=== PATIENT | female | born 1975 | race Caucasian/White ===

== ENCOUNTER 2024-03-09 17:33 | Emergency (ER) | payer BC, SELFPAY ==
[2024-03-09 17:35] VITALS: BP 131/95; BMI 24.4
[2024-03-09] MEDS: OMNIPAQUE 50 ML PO (18:11)
[2024-03-09] MEDS: NSS IV (18:16)
[2024-03-09 18:20] LABS: % Basophils 0.3 % (0-2); % Eosinophils 0.6 % (0-6); % Immature Granulocytes 0.3 % (0-0.5); % Lymphocytes 34.1 % (20.5-51.1); % Monocytes 4.4 % (1.7-9.3); % Neutrophils 60.3 % (42.2-75.2); Absolute Lymphocytes 2.3 10^3/uL (1.2-3.4); Absolute Monocytes 0.3 10^3/uL (0.1-0.6); Absolute Neutrophils 4.1 10^3/uL (1.4-6.5); Hematocrit 38.2 % (37.0-47.0); Hemoglobin 13.4 g/dL (12.0-16.0); Mean Corp Hgb Conc. 35.1 g/dL (33.0-37.0); Mean Corpuscular Hgb 29.1 pg (27.0-31.0); Mean Platelet Volume 9.8 fL (7.4-10.4); Nucleated Red Blood Cells % 0 %; Platelet Count 289 10^3/uL (130-400); Red Cell Dist. Width 11.9 % (11.5-14.5); White Blood Cell Count 6.8 10^3/uL (4.8-10.8)
[2024-03-09 18:28] LABS: HCG, Serum Qualitative Screen Negative
--- NOTE | 2024-03-09 18:33 | ED.GENMED ---
History of Present Illness
General
Chief Complaint: Abdominal Pain
Source: patient
Exam Limitations: none
Time Seen by Provider: 03/09/24 17:47
Nursing documentation reviewed up to this point in time: agreed with
Travel History
Have you had any contact with someone who has COVID-19?: No
Do you have any symptoms of coronavirus? Fever > 100 degrees, chills, cough, shortness of breath, sore throat, loss of taste or smell, muscle aches, or headache?: No
History of Present Illness
History of Present Illness:
Patient to ED with complaint of lower abdominal pain x 1 day. Reports nausea but no vomiting. No diarrhea. Denies fever/chills, recent illness. Brought to ED by family for eval. No prior history of same.
Past History
Past History
ED Past Medical History: Other (Depression)
ED Past Surgical History: Other
Social History
Tobacco: Smoker
Personal:
Review of Systems
Review of Systems
Allergies reviewed?: Yes
All Other Systems: ROS reviewed and negative except as documented in HPI and ROS
Constitutional: Reports no symptoms
EENT: Reports no symptoms
Respiratory: Reports no symptoms
Cardiac: Reports no symptoms
ABD/GI: Reports abdominal pain (lower abdominal pain)
: Reports no symptoms
Musculoskeletal: Reports no symptoms
Skin: Reports no symptoms
Neurological: Reports no symptoms
Psychiatric: Reports no symptoms
Phy Exam
General Physical Exam
General Presentation: well appearing and mild distress
General age: appears stated age
General Skin: warm and diaphoretic
General Habitus: normal
General Mental: alert
Gastrointestinal Exam
Gastrointestinal Exam: normal bowel sounds, soft, no organomegaly, non distended and no cva tenderness
Palpation: left upper quadrant: No tenderness, left lower quadrant: Moderate tenderness, right upper quadrant: No tenderness and right lower quadrant: Moderate tenderness
Musculoskeletal Exam
Musculoskeletal Exam: full ROM and neuro vasc intact
Skin Exam
Skin Exam: normal color, warm/dry and no rash
Psychiatric Exam
Psychiatric Exam: normal mood/affect
Course
Orders/Labs/Results
Orders:
Orders
03/09/24 18:00
0.9% Sodium Chloride 1000 ml [Nss] 1,000 ml IV BOLUS
Iohexol [Omnipaque] See Protocol PO NOW STA
Ketorolac [Toradol] 30 mg IV NOW STA
Test Result ONCE
03/09/24 18:13
Complete Blood Count/With Diff Urgent
Comprehensive Metabolic Panel Urgent
HCG, Serum Qualitative Screen Urgent
Lipase Urgent
03/09/24 18:32
CT Abd/pel W Iv And Oral Contr Urgent
Comment:
Reason For Exam: lower abdominal pain
03/09/24 19:25
Urinalysis Reflex To Culture Urgent
Date Specimen was Collected: 03/09/24
Time Specimen was Collected: 19:23
Urine Microscopic Reflex Cult Urgent
Abnormal Lab Results
03/09/24 03/09/24
18:13 19:25
Sodium 130 L mmol/L
(135-145)
Leukocyte Esterase Rfl Trace A
(Negative)
Urine Bacteria (Reflex) Few A
(Negative)
03/09/24 18:13
03/09/24 18:13
Vital Signs
Initial and Last Documented VS:
Initial Vital Signs
Temp Pulse Resp BP Pulse Ox
98.2 F 76 16 131/95 99
03/09/24 17:35 03/09/24 17:35 03/09/24 17:35 03/09/24 17:35 03/09/24 17:35
Last Documented Vital Signs
Temp Pulse Resp BP Pulse Ox
98.2 F 57 18 126/78 99
03/09/24 17:35 03/09/24 20:59 03/09/24 20:59 03/09/24 20:59 03/09/24 20:59
*Radiology
Radiology exam reviewed: radiology read reviewed
*Pulse Oximetry
Patient hypoxic: no
*Critical Care Note
Total Time (30-74mins, 75-104mins- exclusive of procedures): Not Applicable
ED Attending Note
-
Portions of this chart may have been created with voice recognition software.� Occasional wrong word or��sound alike� substitutions may have occurred due to the inherent limitations of voice recognition software.
Discharge Plan
Departure
Patient Disposition: Home (Routine Discharge)
Date of Disposition: 03/09/24
Time of Disposition: 20:54
Patient with high blood pressure during this ER visit?: No
Condition: Good
Covid-19: Not Applicable
Discharge Problem:
Abdominal pain
Instructions: Clear Liquid Diet, Abdominal Pain
Prescriptions:
No Action
alprazolam 0.5 MG tablet
0.5 mg PO BID
sertraline 50 MG tablet
100 mg PO DAILY
prenat.vits,bereket,axd-ryvt-bbstf [ Vitamin] 1 TAB tablet
1 tab PO
Referrals:
NONE,* [Family Provider] -
Activity Restrictions/Additional Instructions:
Follow up with your family doctor in 1-2 days.
Interventions
Interventions:
*Risk Screen - Suicide Last Done: 03/09/24 17:35
*General Assessment Last Done: 03/09/24 18:11
*Neglect/Abuse Screening Last Done: 03/09/24 17:35
ED- Fall Risk Assessment Last Done: 03/09/24 17:35
*ED COVID-19 Vaccine History Last Done: 03/09/24 17:35
*Nursing Disposition Last Done: 03/09/24 21:02
VU-Baabdg-Ztyhuklccv Assessment Last Done: 03/09/24 18:11
Discharge Date and Time
Discharge Date/Time: 03/09/24 21:03
Print Language: [place]
[2024-03-09 18:34] LABS: ALT (SGPT) 21 U/L (0-35); AST (SGOT) 27 U/L (14-36); Albumin 4.5 g/dl (3.5-5.0); Alkaline Phosphatase 91 U/L (38-126); Blood Urea Nitrogen 9 mg/dl (7-17); Calcium 9.5 mg/dl (8.4-10.2); Carbon Dioxide 27 mmol/L (22-30); Chloride 99 mmol/L (98-107); Estimated Creatinine Clearance 75 ml/min; Glucose 98 mg/dl (70-99); Lipase 76 U/L (23-300); Potassium 4.5 mmol/L (3.5-5.1); Sodium 130 mmol/L (135-145); Total Bilirubin 0.3 mg/dl (0.2-1.3); Total Protein 7.1 g/dl (6.3-8.2); eGFR > 60.00
[2024-03-09] MEDS: NSS 1000 IV (19:27)
[2024-03-09 19:35] LABS: Urine Albumin Negative (Neg - Trace); Urine Bilirubin Negative (Negative); Urine Character Clear (Clear); Urine Color Yellow; Urine Glucose Negative (Negative); Urine Ketone Negative (Negative); Urine Leukocyte Trace (Negative); Urine Nitrite Negative (Negative); Urine Occult Blood Negative (Negative); Urine Specific Gravity 1.015 (<1.030); Urine Urobilinogen Negative (Neg - 1+); Urine pH 6.5 (5.0-9.0)
[2024-03-09 19:43] LABS: Urine Bacteria Few (Negative); Urine Red Blood Cell None Seen /HPF (0-2)
[2024-03-09 20:59] VITALS: BP 126/78
== END 2024-03-09 21:03 | disposition home or self-care (01) ==
LOC: EMR 17:33
PROVIDERS: Nurse Practitioner; EMERGENCY PHYSICIAN Emergency Medicine
DX: R10.30 Lower abdominal pain, unspecified (principal); R11.0 Nausea; F17.200 Nicotine dependence, unspecified, uncomplicated
CPT/HCPCS: 99285; 96360; 74177; 80053; 81003; 81015; 83690; 84703; 85025; Q9967

== ENCOUNTER 2025-08-05 01:51 | Emergency (ER) | payer BC, SELFPAY ==
[2025-08-05 02:39] VITALS: BP 132/94
[2025-08-05 02:42] VITALS: BMI 24.8
--- NOTE | 2025-08-05 02:42 | DOWNTIME ---
There was a [employer] Downtime on 08/05/2025 from 0100 to 08/05/2025 at 0215. Downtime documentation of patient's care, including medication administrations, has been reconciled in the electronic record per guidelines. Refer to the
patient's paper chart under the miscellaneous tab to see printed paper medication records and downtime forms.
[2025-08-05 03:00] VITALS: BP 114/89
[2025-08-05 03:59] LABS: Hematocrit 34.0 % (37.0-47.0); Hemoglobin 12.0 g/dL (12.0-16.0); Mean Corp Hgb Conc. 35.3 g/dL (33.0-37.0); Mean Corpuscular Volume 81.1 fL (81.0-99.0); Nucleated Red Blood Cells % 0 %; Platelet Count 277 10^3/uL (130-400); Red Cell Dist. Width 11.9 % (11.5-14.5); Urine Character Clear (Clear)
[2025-08-05 04:00] VITALS: BP 117/78
--- NOTE | 2025-08-05 04:01 | ED.GENMED ---
History of Present Illness
General
Chief Complaint: Abdominal Pain
Source: patient
Exam Limitations: none
Time Seen by Provider: 08/05/25 02:36
Nursing documentation reviewed up to this point in time: agreed with
History of Present Illness
History of Present Illness:
49-year-old female with a past medical history of anxiety and depression , presents to the emergency department today with concerns of abdominal pain. This has been going on for the past few weeks on and off but today it became more intense.
Currently, she does not have the pain but reports that it will come in strong waves that are very uncomfortable. Patient has never had anything like this before. Patient reports that the pain feels like a band in her lower abdomen which will
Radiate to the back. She denies any burning with urination, blood her urine, urinary frequency. She denies any fevers or chills. She denies any diarrhea or constipation. She denies history of abdominal surgeries. s. She denies any sick contacts.
She has any chest pain or shortness of breath. She denies any upper respiratory symptoms. She currently does not follow with a primary care provider.
Past History
Past History
ED Past Medical History: Other (Depression)
ED Past Surgical History: Other
Social History
Tobacco: Smoker
Personal:
Review of Systems
Review of Systems
All Other Systems: ROS reviewed and negative except as documented in HPI and ROS
Phy Exam
General Physical Exam
General Presentation: well appearing and no apparent distress
General age: appears stated age
General Skin: warm and dry
Eye Exam
Eye Exam: EOMI
Cardiovascular Exam
Cardiovascular Exam: regular rate/rhythm
Pulmonary Exam
Pulmonary Exam: lungs clear, no respiratory distress, no rales, no crackles and no rhonchi
Gastrointestinal Exam
Gastrointestinal Exam: normal bowel sounds, non tender, soft, no pulsatile mass and non distended
Neurological Exam
Neurological Exam: alert and oriented x3
Skin Exam
Skin Exam: normal color and warm/dry
Psychiatric Exam
Psychiatric Exam: normal mood/affect
Course
Orders/Labs/Results
Orders:
Orders
08/05/25 03:28
CT Abd/pelvis W Iv Cont Urgent
Comment:
Reason For Exam: diffuse lower abdominal pain, flank pain
IV Insert/Care/Rem.- Treatment PRN
Test Result ONCE
08/05/25 03:46
Complete Blood Count/With Diff Urgent
Comprehensive Metabolic Panel Urgent
HCG, Serum Qualitative Screen Urgent
Comment: ADD ON
Lipase Urgent
, Urine Qualitative Screen [HCG, Urine Qualitative Screen] Urgent
Date Specimen was Collected: 08/05/25
Time Specimen was Collected: 03:41
Urinalysis Reflex To Culture Urgent
Date Specimen was Collected: 08/05/25
Time Specimen was Collected: 03:41
Urine Microscopic Reflex Cult Urgent
08/05/25 04:49
Add On- LAB Urgent
Tests Added?: HCG QUAL
Abnormal Lab Results
08/05/25
03:46
RBC 4.19 L 10^6/uL
(4.20-5.40)
Hct 34.0 L %
(37.0-47.0)
Sodium 130 L mmol/L
(135-145)
Chloride 95 L mmol/L
(98-107)
Urine Bacteria (Reflex) Few A
(Negative)
Urine Albumin (Reflex) 1+ A
(Neg - Trace)
08/05/25 03:46
08/05/25 03:46
Vital Signs
Initial and Last Documented VS:
Initial Vital Signs
BP
132/94
08/05/25 02:39
Last Documented Vital Signs
BP Pulse Ox
122/82 97
08/05/25 06:00 08/05/25 06:01
MDM/Problems Addressed
Differential Diagnosis Includes:
ddx include diverticulitis, IBS, gastritis, dietary intolerance
MDM/Problems Addressed:
49-year-old female with past medical history of anxiety, depression, presents to the emergency department today with concerns of intermittent spastic lower abdominal pain. She's never had anything like this before. It's been going on for A few weeks
now but acutely worse than the past day. m physical exam, she's well peeing and no acute distress . Heart is regular rate and rhythm with no murmurous. On exam, her abdomen soft and nontender. bs reviewed, mild hyponatremia noted at baseline , at
our blood work unremarkable . Patient is not . Analysis negative. Considering patient's ongoing symptoms and severity of the pain today, patient was sent for CT scan showed no acute trawl dermal. Reevaluation, he shouldn't remain pain-free
and feels comfortable. Discussed follow up with [facility] to address ongoing symptoms and discuss the importance of establishing a primary care provider. I did offer dental with patient intermittent pain however patient is concerned is concerned about
interaction with her antidepressants and declines this. Patient stable for discharge. Discussed strict return precautions.
*Pulse Oximetry
SaO2: 99
Oxygen Mode of Delivery: Room air
Patient hypoxic: no
*Critical Care Note
Total Time (30-74mins, 75-104mins- exclusive of procedures): Not Applicable
ED Attending Note
-
Portions of this chart may have been created with voice recognition software.� Occasional wrong word or��sound alike� substitutions may have occurred due to the inherent limitations of voice recognition software.
Discharge Plan
Departure
Patient Disposition: Home (Routine Discharge)
Date of Disposition: 08/05/25
Time of Disposition: 06:16
Patient with high blood pressure during this ER visit?: Yes
Condition: Good
Discharge Problem:
Abdominal pain, Flank pain
Instructions: Flank pain - ED (DC), Abdominal Pain, BLOOD PRESSURE
Prescriptions:
No Action
alprazolam 0.5 MG tablet
0.5 mg PO BID
sertraline 50 MG tablet
100 mg PO DAILY
prenat.vits,bereket,any-mrvy-mgbjw [ Vitamin] 1 TAB tablet
1 tab PO
Referrals:
Trudi Marroquin MD [Active, Gastroenterology] - Call in 1-3 days for appt
NONE,* [Family Provider, Internal Medicine]
Kulwant Pressley MD [Active, Family Practice] - Call in 1-3 days for appt
Activity Restrictions/Additional Instructions:
I highly recommend establishing care with a primary care provider. Please call the attached number to schedule follow up.
Please call the attached number for Dr. Marroquin's office, gastroenterology.
PLEASE RETURN TO THE ER SHOULD YOU DEVELOP CHEST PAIN, SHORTNESS OF BREATH, FEVERS OR CHILLS, INTRACTABLE NAUSEA OR VOMITING, FAINTING SPELLS, LIGHTHEADEDNESS, DIZZINESS, OR ANY OTHER SIGNS OR SYMPTOMS WORRISOME TO YOU.
Interventions
Interventions:
*Risk Screen - Suicide Last Done: 08/05/25 06:31
*General Assessment Last Done: 08/05/25 02:42
*Neglect/Abuse Screening Last Done: 08/05/25 02:42
*ED- Fall Risk Assessment Last Done: 08/05/25 02:42
*ED COVID-19 Vaccine History Last Done: 08/05/25 02:42
*Nursing Disposition Last Done: 08/05/25 06:31
EI-Sotcdb-Agjhecislm Assessment Last Done: 08/05/25 02:42
Discharge Date and Time
Discharge Date/Time: 08/05/25 06:34
Print Language: [place]
[2025-08-05 04:06] LABS: Urine Red Blood Cell None Seen /HPF (0-2)
[2025-08-05 04:21] LABS: ALT (SGPT) 19 U/L (0-35); AST (SGOT) 22 U/L (14-36); Albumin 4.4 g/dl (3.5-5.0); Alkaline Phosphatase 80 U/L (38-126); Blood Urea Nitrogen 8 mg/dl (7-17); Calcium 9.8 mg/dl (8.4-10.2); Carbon Dioxide 29 mmol/L (22-30); Chloride 95 mmol/L (98-107); Estimated Creatinine Clearance 85 ml/min; Glucose 92 mg/dl (70-99); Lipase 63 U/L (23-300); Potassium 4.1 mmol/L (3.5-5.1); Sodium 130 mmol/L (135-145); Total Protein 6.9 g/dl (6.3-8.2); eGFR > 60.00
[2025-08-05 05:00] VITALS: BP 128/92
[2025-08-05 05:19] LABS: HCG, Serum Qualitative Screen Negative
[2025-08-05 06:00] VITALS: BP 122/82
== END 2025-08-05 06:34 | disposition home or self-care (01) ==
LOC: EMR 01:51
PROVIDERS: Physician Assistant; EMERGENCY PHYSICIAN Student in an Organized Health Care Education/Training Program
DX: R10.9 Unspecified abdominal pain (principal); F17.200 Nicotine dependence, unspecified, uncomplicated; E87.1 Hypo-osmolality and hyponatremia
CPT/HCPCS: 99284; 74177; 80053; 81003; 81015; 83690; 84703; 85025; Q9967